=== PATIENT | male | born 1980 | race African-American/Black ===

== ENCOUNTER 2023-06-23 11:19 | Emergency (ER) | payer BC ==
[2023-06-23 11:27] VITALS: BP 147/91; PULSE 63; RESP 16; TEMP 97.9; BMI 21.1
[2023-06-23 12:42] LABS: HEMATOCRIT 40.6 % (35.4-49); HEMOGLOBIN 13.8 G/dL (11.7-16.9); MCH 32.9 pg (25.7-33.7); PLATELET COUNT 231.6 10^3/uL (134-434); RBC 4.19 10^6/uL (4.00-5.60); WHITE BLOOD COUNT 8.8 10^3/uL (4.0-10.8)
[2023-06-23 12:46] LABS: PLATELET ESTIMATE ADEQUATE
[2023-06-23 12:54] LABS: ALBUMIN 4.4 g/dl (3.4-5.0); BILIRUBIN,TOTAL 0.4 mg/dl (0.2-1); CALCIUM 9.6 mg/dl (8.5-10.1); TOT PROT 6.6 g/dl (6.4-8.2)
== END 2023-06-23 13:15 | disposition home or self-care (01) ==
LOC: FER 11:19
DX: R07.89 Other chest pain (principal); M25.512 Pain in left shoulder
CPT/HCPCS: 36415; 71046-TC-FY; 80053; 84484; 85025; 93005; 99285-25